=== PATIENT | female | born 1960 | race Caucasian/White ===

== ENCOUNTER → 2016-10-01 | Outpatient (CLI) | payer OTHER, SELFPAY ==
--- NOTE | 2016-10-01 09:38 | MRI ---
Procedure: MR THORACIC SPINE WITHOUT IV CONTRAST Exam Date: 10/01/2016 7:00 AM CDT Ordering Provider: MEMO HOLLOWAY Clinical Indication: BULGING DISC Comparison: None Technique: Multiplanar MRI of the thoracic spine was obtained without the intravenous administration of contrast medium. Findings: There is normal signal within the marrow of the thoracic vertebral bodies. There is no marrow signal abnormality to suggest fracture or neoplasm. The intervertebral disc spaces are of normal signal characteristics. There is no disc herniation, central canal stenosis, or neural foraminal narrowing. Large Schmorl's node at T6 contouring the superior endplate. The thoracic spinal cord is of normal signal and contour. The conus is of normal signal and contour and terminates at the L1 level. There is no paraspinal mass. There is no prevertebral fluid collection. Impression: Schmorl's node indenting the superior surface of T6 without definite compression fracture. Otherwise, unremarkable noncontrast MRI of the thoracic spine. Electronically signed by: Zain Barrera MD 10/01/2016 9:39 AM CDT
== END | disposition home or self-care (01) ==
LOC: MRI 07:08
PROVIDERS: ATTEND Family Medicine
DX: M51.24 Other intervertebral disc displacement, thoracic region (principal)

== ENCOUNTER → 2017-01-07 | Outpatient (CLI) | payer OTHER ==
--- NOTE | 2017-01-08 11:52 | MAM ---
EXAM DESCRIPTION: 3D Screening BILATERAL CLINICAL HISTORY: 56 yearsFemaleSCREENING no complaints. Breast cancer in family, not first-degree relatives. Postmenopausal. No HRT. Bilateral benign breast biopsies. COMPARISON: 2-D digital screening bilateral study 11/22/2015. Report from prior examination also reviewed. TECHNIQUE: Bilateral CC and MLO projection full-field images, 3-D tomosynthesis digital mammographic technique. Also bilateral synthesized CC/ MLO full-field images. CAD not utilized. FINDINGS: The breast parenchymal density pattern is: Heterogeneously dense breast tissue, which may obscure small masses. No skin thickening or nipple retraction bilateral axillary lymph nodes. Focal asymmetry in the 1030 clock position of the middle third of the left breast approximately 5 cm from the nipple. Not associated with calcifications. Bilateral solitary microcalcifications. No focal, stellate mass or density, , and no suspicious microcalcifications bilaterally. No focal asymmetry or architectural distortion in the right breast. IMPRESSION: BI-RADS CATEGORY: 0 - INCOMPLETE- Need additional imaging evaluation. FOLLOW-UP: Recall for additional imagin-D digital diagnostic orthogonal spot compression of the region of interest in the middle third of the left breast. Targeted left breast ultrasound to the same region.. Written communication explaining the results and follow-up will be mailed to the patient and referring care provider. Electronically signed by: Beni Ford MD 01/08/2017 11:51 AM CDT
== END ==
LOC: MAMMO 10:56
PROVIDERS: ATTEND Nurse Practitioner Family
DX: Z12.31 Encounter for screening mammogram for malignant neoplasm of breast (principal)
CPT/HCPCS: 77063; G0202

== ENCOUNTER → 2017-01-07 | Outpatient (CLI) | payer OTHER | LOC: GMA 10:57 | PROVIDERS: ATTEND Nurse Practitioner Family | DX: Z01.419 Encounter for gynecological examination (general) (routine) without abnormal findings (principal) ==

== ENCOUNTER → 2017-01-15 | Outpatient (CLI) | payer OTHER ==
--- NOTE | 2017-01-15 22:52 | US ---
EXAM DESCRIPTION: Breast,Left CLINICAL HISTORY: 56 yearsFemaleABNORMAL MAMMO COMPARISON: Digital diagnostic 3-D tomosynthesis left breast on this visit. TECHNIQUE: Transcutaneous scanning of the left breast utilizing two-dimensional and Doppler modes. Scanning performed by the remote broadcast technician and Dr. Ford. FINDINGS: Scanning of the left breast at the 910 100 clock positions 4 cm from the nipple. No discrete solid mass or cyst. No parenchymal edema or calcifications. Heterogeneous fibroglandular and fatty tissues. IMPRESSION: 1. BiRads Category 2: Benign. Please refer to digital diagnostic 3-D left breast tomosynthesis examination today. Written communication concerning the findings and impression will be mailed to the patient and referring health care provider. The findings and the follow-up plan were reviewed in person with the patient after the examination. Electronically signed by: Beni Ford MD 01/15/2017 10:51 PM CDT
--- NOTE | 2017-01-16 14:01 | MAM ---
EXAM DESCRIPTION: 3D Diagnostic, Left CLINICAL HISTORY: 56 yearsFemaleABNORMAL MAMMO focal asymmetry left breast on screening examination. COMPARISON: 3-D breast tomosynthesis bilateral screening 01/07/2017. Targeted left breast ultrasound following this examination. Report from prior examination also reviewed. TECHNIQUE: Left breast LM and MLO projection full-field images, 3-D tomosynthesis digital mammographic technique. Also left breast 2-D spot compression LM and CC images anterior metal left breast. CAD was utilized for 2-D imaging. FINDINGS: Intramammary lymph node is noted behind the nipple at 1200 clock position. Focal asymmetry decreases at the 900-1000 clock position in the anterior and middle third of the breast. Dense fibroglandular tissues. ULTRASOUND: Scanning of the left breast at the 900 - 1000 clock positions 4 cm from the nipple. No discrete solid mass or cyst. No parenchymal edema or calcifications. Heterogeneous fibroglandular and fatty tissues. IMPRESSION: BI-RADS CATEGORY: 2 - BENIGN FINDINGS. FOLLOW UP: Return to routine digital bilateral screening, one year interval from January 2017. Written communication explaining the findings and follow-up, will be mailed to the patient and referring health care provider. According to the [employer], yearly mammograms are recommended starting at age 40 and continuing as long as a woman is in good health. Any breast change noted on a breast self-exam should be reported promptly to the patient's healthcare provider. Breast MRI is recommended for women with an approximately 20-25% or greater lifetime risk of breast cancer, including women with a strong family history of breast or ovarian cancer and women who have been treated for Hodgkin's disease. A negative mammographic report should not delay tissue diagnosis in patients with significant clinical history or physical findings. Extremely dense breast tissue limits the sensitivity of digital mammography. Electronically signed by: Beni Ford MD 01/16/2017 2:00 PM CDT
== END | disposition home or self-care (01) ==
LOC: MAMMO 11:47
PROVIDERS: ATTEND Nurse Practitioner Family
DX: R92.8 Other abnormal and inconclusive findings on diagnostic imaging of breast (principal)
CPT/HCPCS: 76641; G0206; G0279

== ENCOUNTER → 2018-01-20 | Outpatient (CLI) | payer OTHER ==
--- NOTE | 2018-01-22 14:43 | MAM ---
EXAM DESCRIPTION: 3D Screening BILATERAL : Digital Mammography. CLINICAL HISTORY: 57 years Female SCREEN . No complaints and no personal history of breast cancer. Remote family history of breast cancer. Childbirth. Postmenopausal. No HRT. Bilateral benign breast biopsies.. Lifetime risk of developing breast cancer (Tyrer-Cuzick model) (%): 15.9. COMPARISON: Bilateral screening digital breast tomosynthesis 01/07/2017.. No prior reports available. TECHNIQUE: Bilateral CC and MLO projection full-field images, Digital tomosynthesis mammographic technique. Bilateral digital 2-D full-field MLO images. CAD not utilized. FINDINGS: The breast parenchymal density pattern is: Heterogeneously dense breast tissue, which may obscure small masses. No skin thickening or nipple retraction. Left axillary lymph node. Densities fibroglandular tissues are in the superior middle third of both breasts. No new focal, stellate mass or density, focal asymmetry , and no suspicious microcalcifications bilaterally. Stable mammograms compared to prior study. IMPRESSION: Benign exam. BIRAD CATEGORY: 2 BENIGN FINDINGS. RECOMMENDATIONS: FOLLOW UP: Routine digital bilateral screening, one year interval from January 2018. Written communication explaining the IMPRESSION and follow-up, will be mailed to the patient and referring health care provider. According to the [employer], yearly mammograms are recommended starting at age 40 and continuing as long as a woman is in good health. Any breast change noted on a breast self-exam should be reported promptly to the patient's healthcare provider. Breast MRI is recommended for women with an approximately 20-25% or greater lifetime risk of breast cancer, including women with a strong family history of breast or ovarian cancer and women who have been treated for Hodgkin's disease. A negative mammographic report should not delay tissue diagnosis in patients with significant clinical history or physical findings. Extremely dense breast tissue limits the sensitivity of digital mammography. Electronically signed by: Beni Ford MD 01/22/2018 2:42 PM CDT
== END ==
LOC: MAMMO 10:30
PROVIDERS: ATTEND Family Medicine
DX: Z12.31 Encounter for screening mammogram for malignant neoplasm of breast (principal)

== ENCOUNTER → 2018-09-02 | Outpatient (CLI) | payer OTHER ==
--- NOTE | 2018-09-02 16:03 | US ---
US THYROID CLINICAL STATEMENT: THYROID NODULE. COMPARISON: None TECHNIQUE: Transcutaneous scanning, grayscale and Doppler modes. FINDINGS: Size right thyroid lobe: 4.6 x 1.5 x 1.2 cm Size left thyroid lobe: 4.2 x 1.9 x 1.3 cm Size isthmus: 0.3 cm Estimated total number of nodules greater than or equal to 1 cm: None. Bilateral lobes are heterogeneous. Nodule 1: Size: 0.8 x 0.8 x 0.6 cm Location: Left Mid Composition: solid or almost completely solid: 2 points Echogenicity: hypoechoic: 2 points Shape: wider than tall: 0 points Margins: ill-defined: 0 points Echogenic foci: none: 0 points ACR Total Points: 4; ACR TI-RADS risk category: TR4 - moderately suspicious nodule. Nodule 2: Size: 0.6 x 0.5 x 0.4 cm Location: Left Lower Composition: solid or almost completely solid: 2 points Echogenicity: hypoechoic: 2 points Shape: wider than tall: 0 points Margins: smooth: 0 points Echogenic foci: none: 0 points ACR Total Points: 4; ACR TI-RADS risk category: TR4 - moderately suspicious nodule. The soft tissue around the thyroid gland shows no dominant solid mass or distinct cyst. No parenchymal edema or large calcifications or abnormal vascularity. IMPRESSION: 1. Nodule 1: ACR TI-RADS 2017 Category TR4. Recommend: No further follow-up.. Recommendations based upon [employer] Best [employer] recommendations and ACR TI-RADS 2017 guidelines. Please see below*. 2. Nodule 2: ACR TI-RADS 2017 Category TR4. Recommend: No further follow-up. 3. Soft tissue around the thyroid gland is unremarkable. *ACR TI-RADS 2017 Recommendations: TR1: No FNA or follow up TR2: No FNA or follow up TR3: FNA if >/= 2.5 cm, follow up if 1.5 - 2.4 cm in 1, 3, and 5 years TR4: FNA if >/= 1.5 cm, follow up if 1.0 - 1.4 cm in 1, 2, 3, and 5 years TR5: FNA if >/= 1.0 cm, follow up if 0.5 - 0.9 cm every year for 5 years ACR TI-RADS recommends that no more than two nodules with the highest ACR TI-RADS total point should be biopsied and no more than four nodules should be followed. These recommendations do not apply to patients with increased risk for thyroid cancer or patients with symptomatic thyroid disease. Electronically signed by: Beni Ford MD 09/02/2018 4:01 PM CDT
== END ==
LOC: US 09:46
PROVIDERS: ATTEND Family Medicine
DX: E04.2 Nontoxic multinodular goiter (principal)

== ENCOUNTER → 2018-09-07 | Outpatient (CLI) | payer OTHER ==
--- NOTE | 2018-09-08 08:06 | US ---
EXAM DESCRIPTION: Pelvis Transvaginal: Ultrasound. CLINICAL HISTORY: 58 years Female PELVIC PAIN COMPARISON: None. TECHNIQUE: Transcutaneous scanning through the urine filled bladder. Endovaginal scanning. Fernandez-scale and Doppler modes. FINDINGS: Uterus 6.3 x 3.5 x 2.7 cm. 31.4 mL. Endometrial thickness 1.3 mm. The myometrium appears heterogeneous. The uterus is not retroverted. Cervix unremarkable. Cul-de-sac contains no fluid. Bilateral ovaries not seen. No adnexal mass or free fluid. IMPRESSION: Uterus normal size and position. No endometrial thickening. Ovaries not seen. No adnexal mass or fluid. Electronically signed by: Beni Ford MD 09/08/2018 8:04 AM CDT
== END ==
LOC: RAD 14:28
PROVIDERS: ATTEND Obstetrics & Gynecology
DX: R10.2 Pelvic and perineal pain (principal)

== ENCOUNTER → 2019-01-22 | Outpatient (CLI) | payer OTHER ==
--- NOTE | 2019-01-25 17:19 | MAM ---
EXAM DESCRIPTION: 3D Screening BILATERAL : Digital Mammography. CLINICAL HISTORY: 58 years Female SCREENING . No complaints or personal history of breast cancer. Remote family history of breast cancer. Childbirth. Postmenopausal. No HRT. Prior benign breast biopsy.. Lifetime risk of developing breast cancer (Tyrer-Cuzick model)(%): 15.6. COMPARISON: Bilateral screening digital breast tomosynthesis 01/20/2018.. TECHNIQUE: Bilateral CC and MLO projection full-field images, digital tomosynthesis mammographic technique. Bilateral digital 2-D full-field MLO images. CAD not available for tomosynthesis or 2-D images. FINDINGS: The breast parenchymal density pattern is: Heterogeneously dense breast tissue, which may obscure small masses. No skin thickening or nipple retraction. Right axillary lymph nodes. Densities fibroglandular tissues are in the middle third bilaterally and more dense medially on the left. No new focal, stellate mass or density, focal asymmetry , and no suspicious microcalcifications . Bilaterally. Stable mammograms compared to prior study. IMPRESSION: Benign exam. BIRAD CATEGORY: 2 BENIGN FINDINGS. RECOMMENDATIONS: FOLLOW UP: Routine digital bilateral mammographic screening, one year interval from January 2019. Written communication explaining the IMPRESSION and follow-up, will be mailed to the patient and referring health care provider. According to the [employer], yearly mammograms are recommended starting at age 40 and continuing as long as a woman is in good health. Any breast change noted on a breast self-exam should be reported promptly to the patient's healthcare provider. Breast MRI is recommended for women with an approximately 20-25% or greater lifetime risk of breast cancer, including women with a strong family history of breast or ovarian cancer and women who have been treated for Hodgkin's disease. A negative mammographic report should not delay tissue diagnosis in patients with significant clinical history or physical findings. Extremely dense breast tissue limits the sensitivity of digital mammography. Electronically signed by: Beni Ford MD 01/25/2019 5:18 PM CDT
== END ==
LOC: MAMMO 10:30
PROVIDERS: ATTEND Family Medicine
DX: Z12.31 Encounter for screening mammogram for malignant neoplasm of breast (principal)

== ENCOUNTER → 2020-02-10 | Outpatient (CLI) | payer OTHER ==
--- NOTE | 2020-02-11 16:50 | MAM ---
EXAM DESCRIPTION: 3D Screening BILATERAL : Digital Mammography. CLINICAL HISTORY: 59 years Female ANNUAL SCREENING . No complaints. Remote family history of breast cancer. Menarche age unknown. Childbirth age 29. Menopause age unknown. No HRT. Bilateral benign breast biopsies.. Lifetime risk of developing breast cancer (Tyrer-Cuzick model)(%): 9.7. COMPARISON: Bilateral screening digital breast tomosynthesis January 2019 and January 2018.. TECHNIQUE: Bilateral CC and MLO projection full-field images, digital tomosynthesis mammographic technique. Bilateral digital 2-D full-field MLO images. CAD available for 2-D images. FINDINGS: The breast parenchymal density pattern is: Heterogeneously dense breast tissue, which may obscure small masses. No skin thickening or nipple retraction. Solitary microcalcifications. Axillary lymph nodes. No new focal, stellate mass or density, focal asymmetry , and no suspicious microcalcifications bilaterally. Stable mammograms compared to prior study. Taking into account, differences in mammographic technique. IMPRESSION: Benign exam. BIRAD CATEGORY: 2 BENIGN FINDINGS. RECOMMENDATIONS: FOLLOW UP: Routine digital bilateral mammographic screening, one year interval from February 2020. Written communication explaining the IMPRESSION and follow-up, will be mailed to the patient and referring health care provider. According to the [employer], yearly mammograms are recommended starting at age 40 and continuing as long as a woman is in good health. Any breast change noted on a breast self-exam should be reported promptly to the patient's healthcare provider. Breast MRI is recommended for women with an approximately 20-25% or greater lifetime risk of breast cancer, including women with a strong family history of breast or ovarian cancer and women who have been treated for Hodgkin's disease. A negative mammographic report should not delay tissue diagnosis in patients with significant clinical history or physical findings. Extremely dense breast tissue limits the sensitivity of digital mammography. Electronically signed by: Beni Ford MD 02/11/2020 4:48 PM CDT
== END ==
LOC: MAMMO 09:35
PROVIDERS: ATTEND Family Medicine
DX: Z12.31 Encounter for screening mammogram for malignant neoplasm of breast (principal)